=== PATIENT | male | born 1955 ===

== ENCOUNTER 2018-11-21 14:47 | Outpatient (CLI) | payer MEDICARE | END 2018-11-21 14:48 | disposition home or self-care (01) | LOC: C.VASC 14:47 ==

== ENCOUNTER 2019-02-11 13:02 | Outpatient (CLI) | payer MEDICARE | END 2019-02-11 13:03 | disposition home or self-care (01) | LOC: C.USIC 13:02 | DX: N18.9 Chronic kidney disease, unspecified (principal) ==